=== PATIENT | female | born 1945 | race African-American/Black ===

== ENCOUNTER 2025-05-27 09:07 | Emergency (ER) | payer MEDICARE ==
[2025-05-27 09:52] LABS: #Basophils Less than 0.03 10x3/uL (0.0-0.2); #Eosinophils Less than 0.03 10x3/uL (0.0-0.5); #Monocytes 0.59 10x3/uL (0.0-1.1); #Neutrophils 6.07 10x3/uL (1.5-8.4); %Basophils 0.1 % (0.0-2.0); %Eosinophils 0.3 % (0.0-6.0); %Lymphocytes 14.1 % (18.0-47.0); %Monocytes 7.6 % (0.0-10.0); %Neutrophils 77.6 % (40.0-75.0); Hematocrit 33.2 % (34.9-44.5); Hemoglobin 10.6 g/dL (12.0-15.5); Mean Corpuscular Hemoglobin 31.5 pg (27.0-33.0); Mean Corpuscular Volume 98.5 fL (81.6-98.3); Platelet Count 165 10x3/uL (150-450); Red Blood Cell (RBC) Count 3.37 10x6/uL (3.90-5.03); White Blood Cell (WBC) Count 7.81 10x3/uL (3.5-10.5)
[2025-05-27 10:09] LABS: ALT (SGPT) 36 U/L (Less than 34); AST (SGOT) 42 U/L (11-34); Albumin 3.8 g/dL (3.1-4.5); Alkaline Phosphatase 81 U/L (40-110); Anion Gap 18 mmol/L (10-20); BUN (Urea Nitrogen) 31 mg/dL (9.8-20.1); Bilirubin, Total 0.8 mg/dL (0.3-1.2); Calc. Creatinine Clearance 0 mL/min (70-130); Calcium 9.9 mg/dL (7.8-10.44); Carbon Dioxide 22 mmol/L (23-31); Chloride 109 mmol/L (98-107); Globulin 3.6 g/dL (2.4-3.5); Glucose 81 mg/dL (83-110); Potassium 4.2 mmol/L (3.5-5.1); Sodium 145 mmol/L (136-145)
[2025-05-27 11:34] LABS: Glucose, Urine (Dipstick) Normal (Negative); Leukocyte Negative (Negative); Protein, Urine (Dipstick) 30 mg/dl (Neg-Trace); Specific Gravity, Urine 1.020 (1.005-1.030)
[2025-05-27 11:53] LABS: Bacteria/HPF None Seen HPF (None Seen); CAUTI Indications for Culture Pelvic or flank pain; RBC/HPF 0-3 HPF (0-3)
[2025-05-27 11:54] LABS: WBC/HPF 0-3 HPF (0-3)
[2025-05-27 11:55] LABS: Urine Culture Reflex No No
== END 2025-05-27 17:48 ==
LOC: CSHERS 09:07
DX: G93.40 Encephalopathy, unspecified (principal); R53.1 Weakness; R62.7 Adult failure to thrive; F03.90 Unspecified dementia, unspecified severity, without behavioral disturbance, psychotic disturbance, mood disturbance, and anxiety; I10 Essential (primary) hypertension
CPT/HCPCS: 36415; 51701; 80053; 81001; 83880; 84439; 84443; 85025; 93005; 99285

== ENCOUNTER 2025-06-19 08:42 | Emergency (ER) | payer MEDICARE ==
[2025-06-19 09:35] LABS: #Basophils Less than 0.03 10x3/uL (0.0-0.2); #Eosinophils 0.03 10x3/uL (0.0-0.5); #Monocytes 0.39 10x3/uL (0.0-1.1); #Neutrophils 8.81 10x3/uL (1.5-8.4); %Basophils 0.0 % (0.0-2.0); %Eosinophils 0.3 % (0.0-6.0); %Lymphocytes 5.9 % (18.0-47.0); %Monocytes 4.0 % (0.0-10.0); %Neutrophils 89.4 % (40.0-75.0); Hematocrit 29.9 % (34.9-44.5); Hemoglobin 10.2 g/dL (12.0-15.5); Mean Corpuscular Hemoglobin 31.9 pg (27.0-33.0); Mean Corpuscular Volume 93.4 fL (81.6-98.3); Platelet Count 125 10x3/uL (150-450); Red Blood Cell (RBC) Count 3.20 10x6/uL (3.90-5.03); White Blood Cell (WBC) Count 9.85 10x3/uL (3.5-10.5)
[2025-06-19 09:54] LABS: ALT (SGPT) 56 U/L (Less than 34); AST (SGOT) 39 U/L (11-34); Albumin 3.2 g/dL (3.1-4.5); Alkaline Phosphatase 72 U/L (40-110); Anion Gap 19 mmol/L (10-20); Bilirubin, Total 0.3 mg/dL (0.3-1.2); Calc. Creatinine Clearance 0 mL/min (70-130); Calcium 8.6 mg/dL (7.8-10.44); Carbon Dioxide 14 mmol/L (23-31); Chloride 108 mmol/L (98-107); Globulin 2.7 g/dL (2.4-3.5); Glucose 87 mg/dL (83-110); Potassium 5.2 mmol/L (3.5-5.1); Sodium 136 mmol/L (136-145)
[2025-06-19 09:58] LABS: Troponin I 0.024 ng/mL (< 0.028)
[2025-06-19 10:06] LABS: BUN (Urea Nitrogen) 144 mg/dL (9.8-20.1)
[2025-06-19 10:46] LABS: Actual Bicarbonate (HCO3v) 16.1 mEq/L (22-28); Analyzer IN Cardio CS ER; Base Excess -8.8 mEq/L (-2 - +2); Calcium, Ionized (venous) 1.14 mmol/L (1.16-1.32); Chloride (VBG) 106 mmol/L (98-106); Hematocrit-VBG 30 % (36.0-47.0); Hemoglobin (Hb) 10.3 g/dL (11.7-16.1); Potassium (VBG) 4.62 mmol/L (3.70-5.30); Puncture Site Other Site; Sodium 135 mmol/L (133-146)
[2025-06-19 11:34] LABS: Glucose, Urine (Dipstick) Normal (Negative); Leukocyte Negative (Negative); Protein, Urine (Dipstick) 30 mg/dl (Neg-Trace); Specific Gravity, Urine 1.025 (1.005-1.030)
[2025-06-19 11:44] LABS: Bacteria/HPF 1+ HPF (None Seen); CAUTI Indications for Culture Alt mental st,lethar; RBC/HPF 0-3 HPF (0-3); WBC/HPF None Seen HPF (0-3)
[2025-06-19 11:45] LABS: Urine Culture Reflex No No
[2025-06-19] MEDS ORDERED: Calcium Gluc 4.6 MEQ/10 ML (100 MG/ML) ONE (13:10)
[2025-06-19] MEDS ORDERED: Albuterol 2.5 MG (3 mL) NEB ONE (13:17)
== END 2025-06-19 16:05 | disposition short-term general hospital (02) ==
LOC: CSHERS 08:42
DX: S00.83XD Contusion of other part of head, subsequent encounter (principal); N17.9 Acute kidney failure, unspecified; F03.90 Unspecified dementia, unspecified severity, without behavioral disturbance, psychotic disturbance, mood disturbance, and anxiety; R00.1 Bradycardia, unspecified; I10 Essential (primary) hypertension; Z79.899 Other long term (current) drug therapy; Z79.2 Long term (current) use of antibiotics; W01.0XXD Fall on same level from slipping, tripping and stumbling without subsequent striking against object, subsequent encounter
CPT/HCPCS: 36415; 70450; 71045; 72125; 72170; 80053; 81001; 82805; 83605; 84484; 85025; 87040; 93005; J0612; J7611